=== PATIENT | male | born 1990 | race Caucasian/White ===

== ENCOUNTER 2017-12-10 00:18 | Emergency (ER) | payer BC ==
[~2017-12-10] VITALS: Ht 185.4 cm; Wt 100.0 kg
[2017-12-10 00:24] VITALS: BP 125/78; TEMP 97.6
[2017-12-10] MEDS ORDERED: DOXYCYCLINE HY100 MG PO (00:51)
[2017-12-10] MEDS ORDERED: ATIVAN 0.50.5 MG/TAB PO (01:10)
[2017-12-10 01:11] VITALS: PULSE 108
[2017-12-10] MEDS ORDERED: ADDERALL12.5 MG PO (01:11)
== END 2017-12-10 01:13 | disposition home or self-care (01) ==
LOC: COL.ER 00:18
DX: L03.317 Cellulitis of buttock (principal); L03.116 Cellulitis of left lower limb; F17.210 Nicotine dependence, cigarettes, uncomplicated

== ENCOUNTER 2018-05-07 23:31 | Emergency (ER) | payer BC ==
[~2018-05-07] VITALS: Ht 185.4 cm; Wt 100.0 kg
[~2018-05-07 23:31] MED LIST: ADDERALL12.5 MG PO; ATIVAN 0.50.5 MG/TAB PO; DOXYCYCLINE HY100 MG PO
[2018-05-07 23:59] LABS: COLLECTION METHOD RANDOM VOIDED
[2018-05-08 00:07] LABS: PH 6 (5-8); SQUAMOUS EPITHELIAL None Seen /hpf; URINE APPEARANCE Clear; URINE BACTERIA None Seen /hpf; URINE BILIRUBIN Negative (NEGATIVE); URINE BLOOD Negative (NEGATIVE); URINE COLOR Colorless; URINE GLUCOSE Negative (NEGATIVE); URINE KETONE Negative (NEGATIVE); URINE LEUKOCYTE ESTERASE Negative (NEGATIVE); URINE NITRATE Negative (NEGATIVE); URINE PROTEIN(semi-quant) Negative (NEGATIVE); URINE RBC None Seen /hpf; URINE UROBILINOGEN Negative (NEGATIVE)
[2018-05-08 00:14] LABS: TRICYCLIC ANTIDEPRESS URINE NEGATIVE
[2018-05-08 00:15] LABS: BASO # 0.1 (0.0-0.2); BASO % 0.8 % (0.0-2.0); EOS # 0.2 (0.0-0.7); EOS % 2.3 % (0-4.0); GRAN # 5.3 (1.4-6.5); GRAN % 52.2 % (42.2-75.2); HEMATOCRIT 45.2 % (42.0-52.0); HEMOGLOBIN 15.8 g/dl (13.5-18.0); LYMPH % 39.6 % (20.0-51.0); MEAN CELL VOLUME 86 fl (80.0-100.0); MEAN CORPUSCULAR HEMOGLOBIN 30 pg (27.0-31.0); MEAN CORPUSCULAR HGB CONC 35 g/dl (33.0-37.0); MEAN PLATELET VOLUME 8.9 fl (7.4-10.4); MONO # 0.5 (0.1-0.6); MONO % 4.8 % (1.7-9.3); PLATELET COUNT 305 K/mm3 (130-400); RED BLOOD COUNT 5.25 M/mm3 (4.20-5.60); REDCELL DISTRIBUTION WIDTH-CV 12.2 % (11.5-14.5)
[2018-05-08 00:30] LABS: POTASSIUM 4.5 mmol/L (3.4-5.0)
[2018-05-08 00:31] LABS: ALANINE AMINOTRANSFERASE 35 U/L (21-72); ALBUMIN 4.7 gm/dL (3.5-5.0); ALCOHOL(ethanol),MEDICAL 212 mg/dL; ALKALINE PHOSPHATASE 60 U/L (50-136); ANION GAP 12 mmol/L (7-16); AST,SGOT 32 U/L (15-37); BILIRUBIN,TOTAL 0.3 mg/dL (0.0-1.0); BLOOD UREA NITROGEN 10 mg/dL (9-20); CALCIUM 9.7 mg/dL (8.4-10.2); CARBON DIOXIDE 28 mmol/L (22-30); CHLORIDE 105 mmol/L (98-107); CREATININE, serum 1.09 mg/dL (0.66-1.25); GLUCOSE 99 mg/dL (74-106); SODIUM 145 mmol/L (137-145)
[2018-05-08 00:32] LABS: ACETAMINOPHEN < 10 ug/mL (10-30); SALICYLATE < 1.0 mg/dL
[2018-05-08 05:56] VITALS: TEMP 97.1
[2018-05-08 07:08] VITALS: BP 131/77; PULSE 88
== END 2018-05-08 07:11 | disposition home or self-care (01) ==
LOC: COL.ER 23:31
PROVIDERS: Physician Assistant
DX: F32.9 Major depressive disorder, single episode, unspecified (principal); F10.129 Alcohol abuse with intoxication, unspecified; Y90.7 Blood alcohol level of 200-239 mg/100 ml

== ENCOUNTER 2018-06-27 09:30 | Emergency (ER) | payer BC ==
[~2018-06-27] VITALS: Ht 185.4 cm; Wt 100.0 kg
[2018-06-27 09:32] VITALS: TEMP 97.5
[2018-06-27] MEDS ORDERED: MEDROL 4MG DOSPA4 MG PO (10:55)
[2018-06-27 11:11] VITALS: BP 116/92; PULSE 90
== END 2018-06-27 11:16 | disposition home or self-care (01) ==
LOC: COL.ER 09:30
DX: T78.3XXA Angioneurotic edema, initial encounter (principal); T78.40XA Allergy, unspecified, initial encounter; F17.210 Nicotine dependence, cigarettes, uncomplicated; F43.10 Post-traumatic stress disorder, unspecified
CPT/HCPCS: J0171; J1040

== ENCOUNTER 2022-01-05 20:27 | Emergency (ER) | payer BC ==
[~2022-01-05] VITALS: Ht 185.4 cm; Wt 104.5 kg
[~2022-01-05 20:27] MED LIST changes: +MEDROL 4MG DOSPA4 MG PO
[2022-01-05 20:33] VITALS: TEMP 98
[2022-01-05 22:13] VITALS: BP 134/78; PULSE 76
== END 2022-01-05 22:13 | disposition home or self-care (01) ==
LOC: COL.ER 20:27
DX: S51.821A Laceration with foreign body of right forearm, initial encounter (principal); F17.290 Nicotine dependence, other tobacco product, uncomplicated; Z28.310 Unvaccinated for COVID-19; W25.XXXA Contact with sharp glass, initial encounter